=== PATIENT | male | born 1955 | race Caucasian/White ===

== ENCOUNTER → 2017-09-26 | Outpatient (CLI) | payer OTHER | END | disposition home or self-care (01) | LOC: CVU 11:43 | PROVIDERS: ATTEND Internal Medicine Cardiovascular Disease | DX: I08.1 Rheumatic disorders of both mitral and tricuspid valves (principal); E78.5 Hyperlipidemia, unspecified; I10 Essential (primary) hypertension; I42.0 Dilated cardiomyopathy; Z95.0 Presence of cardiac pacemaker | CPT/HCPCS: C8929 ==

== ENCOUNTER → 2018-01-12 | Outpatient (CLI) | payer OTHER | END | disposition home or self-care (01) | LOC: RAD 10:48 | PROVIDERS: ATTEND Physical Medicine & Rehabilitation Pain Medicine | DX: M48.02 Spinal stenosis, cervical region (principal); M25.78 Osteophyte, vertebrae; M54.12 Radiculopathy, cervical region | CPT/HCPCS: 72125 ==

== ENCOUNTER → 2018-09-29 | Outpatient (CLI) | payer OTHER | END | disposition home or self-care (01) | LOC: CFH 08:44 | PROVIDERS: ATTEND Internal Medicine Cardiovascular Disease | DX: I08.1 Rheumatic disorders of both mitral and tricuspid valves (principal); I10 Essential (primary) hypertension; E78.5 Hyperlipidemia, unspecified; Z87.891 Personal history of nicotine dependence; Z95.0 Presence of cardiac pacemaker; Z95.810 Presence of automatic (implantable) cardiac defibrillator | CPT/HCPCS: C8929; Q9957 ==

== ENCOUNTER → 2019-07-27 | Outpatient (CLI) | payer MEDICARE | END | disposition home or self-care (01) | LOC: CFH 12:35 | PROVIDERS: ATTEND Internal Medicine Cardiovascular Disease | DX: I08.1 Rheumatic disorders of both mitral and tricuspid valves (principal); I25.10 Atherosclerotic heart disease of native coronary artery without angina pectoris; I10 Essential (primary) hypertension; E78.5 Hyperlipidemia, unspecified | CPT/HCPCS: 93306 ==

== ENCOUNTER 2019-11-13 11:02 | Day surgery (SDC) | payer MEDICARE ==
[~2019-11-13] VITALS: Ht 188 cm; Wt 94.1 kg
[2019-11-13 11:36] VITALS: BP 105/73
[2019-11-13 11:58] LABS: BASOPHILS # (AUTO) 0.03 x10^3/uL (0-0.1); BASOPHILS % (AUTO) 0 % (0-1); EOSINOPHILS # (AUTO) 0.07 x10^3/uL (0-0.4); EOSINOPHILS % (AUTO) 1 % (1-7); LYMPHOCYTES % (AUTO) 19 % (22-44); MD NO; MEAN CORPUSCULAR HGB CONC 33.8 g/dL (33.2-36.2); MEAN CORPUSCULAR VOLUME 100.7 fL (81-97); MEAN PLATELET VOLUME 7.8 fL (7.4-10.4); MONOCYTES # (AUTO) 0.56 x10^3/uL (0.2-0.8); MONOCYTES % (AUTO) 7 % (2-9); NEUTROPHILS # (AUTO) 5.92 x10^3/uL (1.8-6.8); NEUTROPHILS % (AUTO) 73 % (42-75); PLATELET COUNT 180 x10^3/uL (130-400); RED BLOOD COUNT 4.92 x10^6/uL (4.38-5.82); RED CELL DISTRIBUTION WIDTH 13.2 % (9.4-14.8)
[2019-11-13] MEDS ORDERED: GLUC500T11 PO (11:59)
[2019-11-13] MEDS ORDERED: DIGO125T85 PO (11:59)
[2019-11-13] MEDS ORDERED: ATOR10TA9 PO (11:59)
[2019-11-13] MEDS ORDERED: CARV3.1212 PO (11:59)
[2019-11-13] MEDS ORDERED: LANS30TA6 PO (11:59)
[2019-11-13] MEDS ORDERED: RIVA20TA PO (11:59)
[2019-11-13] MEDS ORDERED: AMIO200T42 PO (11:59)
[2019-11-13] MEDS ORDERED: SPIR25TA5 PO (11:59)
[2019-11-13] MEDS ORDERED: FURO20TA3 PO (11:59)
[2019-11-13] MEDS ORDERED: CHOL10003 PO (11:59)
[2019-11-13] MEDS ORDERED: LISI5TAB7 PO (11:59)
[2019-11-13 12:11] LABS: ALANINE AMINOTRANSFERASE 37 U/L (12-78); ANION GAP 6 mmol/L (5-15); CALCIUM 8.8 mg/dL (8.5-10.1); CHLORIDE 109 mmol/L (98-107)
[2019-11-13 12:39] LABS: ALKALINE PHOSPHATASE 46 U/L (45-117); CREATININE 0.96 mg/dL (0.7-1.3); TOTAL PROTEIN 6.9 g/dL (6.4-8.2)
[2019-11-13] MEDS ORDERED: PROPOFOL 10 MG/ML, 100ML IV ONE (12:41)
== END 2019-11-13 14:03 | disposition home or self-care (01) ==
LOC: CACL 11:02
PROVIDERS: ATTEND Internal Medicine Clinical Cardiac Electrophysiology
DX: I48.19 Other persistent atrial fibrillation (principal); I42.8 Other cardiomyopathies; I44.7 Left bundle-branch block, unspecified; I10 Essential (primary) hypertension; I25.10 Atherosclerotic heart disease of native coronary artery without angina pectoris; I47.2 Ventricular tachycardia; I34.0 Nonrheumatic mitral (valve) insufficiency; E78.2 Mixed hyperlipidemia; G47.33 Obstructive sleep apnea (adult) (pediatric); Z79.01 Long term (current) use of anticoagulants; Z79.899 Other long term (current) drug therapy; Z95.810 Presence of automatic (implantable) cardiac defibrillator
CPT/HCPCS: 36415; 71046; 80053; 85025; 92960; J2704

== ENCOUNTER → 2019-11-30 | Outpatient (CLI) | payer MEDICARE ==
[~2019-11-30] MED LIST: AMIO200T42 PO; ATOR10TA9 PO; CARV3.1212 PO; CHOL10003 PO; DIGO125T85 PO; FURO20TA3 PO; GLUC500T11 PO; LANS30TA6 PO; LISI5TAB7 PO; RIVA20TA PO; SPIR25TA5 PO
== END | disposition home or self-care (01) ==
LOC: CFH 11:22
PROVIDERS: ATTEND Family Medicine
DX: M85.80 Other specified disorders of bone density and structure, unspecified site (principal); M81.0 Age-related osteoporosis without current pathological fracture
CPT/HCPCS: 77080

== ENCOUNTER → 2020-07-28 | Outpatient (CLI) | payer MEDICARE | END | disposition home or self-care (01) | LOC: CFH 14:54 | PROVIDERS: ATTEND Internal Medicine Cardiovascular Disease | DX: I08.1 Rheumatic disorders of both mitral and tricuspid valves (principal); I27.20 Pulmonary hypertension, unspecified; I42.0 Dilated cardiomyopathy; I25.10 Atherosclerotic heart disease of native coronary artery without angina pectoris | CPT/HCPCS: 93306 ==

== ENCOUNTER 2020-11-28 09:09 | Day surgery (SDC) | payer MEDICARE ==
[~2020-11-28] VITALS: Ht 188 cm; Wt 95.7 kg
[2020-11-28 10:29] VITALS: BP 103/55
[2020-11-28] MEDS ORDERED: LIDOCAINE 2%, 20ML ONE (10:51)
[2020-11-28] MEDS ORDERED: MIDAZOLAM 1 MG/ML, 5ML ONE (10:51)
[2020-11-28] MEDS ORDERED: FENTANYL PF 100 MCG/2ML ONE (10:51)
[2020-11-28] MEDS ORDERED: SODIUM CHLORIDE 0.9% 1,000 ML IV SCH (13:00)
== END 2020-11-28 13:22 | disposition home or self-care (01) ==
LOC: CACL 09:09
PROVIDERS: ATTEND Internal Medicine Cardiovascular Disease
DX: I42.0 Dilated cardiomyopathy (principal); I42.8 Other cardiomyopathies; I48.91 Unspecified atrial fibrillation; I25.10 Atherosclerotic heart disease of native coronary artery without angina pectoris; I44.7 Left bundle-branch block, unspecified; I34.0 Nonrheumatic mitral (valve) insufficiency; I10 Essential (primary) hypertension; E11.9 Type 2 diabetes mellitus without complications; E78.2 Mixed hyperlipidemia; G47.33 Obstructive sleep apnea (adult) (pediatric); Z79.01 Long term (current) use of anticoagulants; Z79.899 Other long term (current) drug therapy
CPT/HCPCS: 36415; 71046; 82330; 82803; 82947; 84132; 84295; 85014; 93451; 99156; 99157; C1769; C1894; J2250; J3010